=== PATIENT | male | born 1970 | race Caucasian/White ===

== ENCOUNTER 2018-01-13 03:47 | Observation (INO) | payer OTHER ==
[~2018-01-13] VITALS: Ht 172.7 cm; Wt 98.0 kg
--- NOTE | ~2018-01-13 | 2DMMODE ---
[facility] [address] [email or web address] [address] 2 D/M-MODE ECHOCARDIOGRAM Name: MARIANELA CASAS Room #: 355-P ADM IN M.R.#: [id number] Admission: 01/13/18 Attend Phys: Jes Bennett Discharge: Date of : 74 Date of Service: 01/13/18 1638 Report #: [id number] THIS REPORT FOR: //name// APPROVED REPORT Study performed: 01/13/2018 11:29:53 EXAM: Comprehensive 2D, Doppler, and color-flow Echocardiogram Patient Location: Bedside Room #: [facility] Status: on-call BSA: 2.07 HR: 73 bpm BP: 123/87 mmHg Rhythm: NSR Other Information Study Quality: Adequate Indications Murmur Dyspnea Chest Pain 2D Dimensions LVEF(%): 65.00 (>50%) IVSd: 9.22 (7-11mm) LVOT Diam: 20.00 (18-24mm) LVDd: 42.34 mm PWd: 10.28 (7-11mm) Ascending Ao: 27.14 (22-36mm) LVDs: 28.22 (25-40mm) Aortic Root: 24.92 mm LV Single Plane 4CH: 74.66 % LV Single Plane 2CH: 72.46 % Osborne's LVEF: 73.56 % Biplane EF: 74.5 % Volumes Left Atrial Volume (Systole) Single Plane 4CH: 49.00 mL Single Plane 2CH: 31.24 mL LA ESV Index: 22.00 mL/m2 Aortic Valve AoV Peak Parag.: 1.41 m/s AO Peak Gr.: 7.95 mmHg LVOT Max P.24 mmHg LVOT Max V: 1.03 m/s SUZANNE Vmax: 2.35 cm2 [facility] [place] [address] 2 D/M-MODE ECHOCARDIOGRAM Name: MARIANELA CASAS Room #: 355-P [facility] IN .R.#: [id number] Admission: 01/13/18 Attend Phys: Jes Bennett Discharge: Date of : 74 Date of Service: 01/13/18 1638 Report #: [id number] Mitral Valve E/A Ratio: 1.0 MV Decel. Time: 166.30 ms MV E Max Parag.: 0.75 m/s MV A Parag.: 0.74 m/s MV PHT: 48.23 ms IVRT: 69.20 ms TDI E/Lateral E': 12.50 E/Medial E': 15.00 Medial E' Parag.: 0.05 m/s Lateral E' Parag.: 0.06 m/s Pulmonary Valve PV Peak Parag.: 0.74 m/s PV Peak Gr.: 2.19 mmHg Pulmonary Vein P Vein S: 0.51 m/s P Vein A: 0.27 m/s P Vein D: 0.53 m/s P Vein A Dur.: 93.4 msec P Vein S/D Ratio: 0.96 Tricuspid Valve TR Peak Parag.: 2.32 m/s RAP Estimate: 7.00 mmHg TR Peak Gr.: 21.58 mmHg PA Pressure: 29.00 mmHg Left Ventricle The left ventricle is normal size. There is normal LV segmental wall motion. There is normal left ventricular wall thickness. Left ventricular systolic function is normal. The left ventricular ejection fraction is within the normal range. LVEF is 65-70%. The left ventricular diastolic function is normal. Right Ventricle The right ventricle is normal size. The right ventricular systolic function is normal. Atria The left atrium size is normal. The right atrium size is normal. Aortic Valve The aortic valve is normal in structure. No aortic regurgitation is present. There [place] [address] 2 D/M-MODE ECHOCARDIOGRAM Name: MARIANELA CASAS Room #: 355-P [facility] IN ..#: [id number] Admission: 01/13/18 Attend Phys: Jes Bennett Discharge: Date of : 74 Date of Service: 01/13/18 1638 Report #: [id number] Mitral Valve The mitral valve is normal in structure. There is no mitral valve regurgitation noted. No evidence of mitral valve stenosis. Tricuspid Valve The tricuspid valve is normal in structure. Trace tricuspid regurgitation. Pulmonary artery pressure is 29 mmHg. Pulmonic Valve The pulmonary valve is normal in structure. Trace pulmonic regurgitation. Great Vessels The aortic root is normal in size. IVC is normal in size and collapses with >50% inspiration Pericardium There is no pericardial effusion. <Conclusion> The left ventricle is normal size. LVEF is 65-70%. The aortic valve is normal in structure. The mitral valve is normal in structure. The tricuspid valve is normal in structure. Trace tricuspid regurgitation. Pulmonary artery pressure is 29 mmHg. The pulmonary valve is normal in structure. Trace pulmonic regurgitation. There is no pericardial effusion. <ELECTRONICALLY SIGNED> By: Nas Hernandez MD 01/13/18 1638 1638 1638 Nas Hernandez MD /INF
--- NOTE | ~2018-01-13 | EKG ---
[place] [address] [facility] [place] [address] ELECTROCARDIOGRAM REPORT Name: MARIANELA CASAS Room #: 355-P [facility]#: [id number] Admission: 01/13/18 Attend Phys: eJs Zimmerman Discharge: 01/13/18 Date of : 74 Report #: [id number] THIS REPORT FOR: //name// [facility] ED Test Date: 2018-01-13 Test Time: 03:59:03 Pat Name: MARIANELA CASAS Department: Room: Gender: M Flight Follower: norma : 1970 Requested By: Trevor Santos Order Number: [id number] MD: Angelo Wilson Measurements Intervals Crozier Rate: 88 P: 62 CT: 132 QRS: 51 QRSD: 106 T: 26 QT: 378 QTc: 458 Interpretive Statements Sinus rhythm Left atrial enlargement Borderline T abnormalities, anterior leads Compared to ECG 06/03/2010 11:36:11 T-wave abnormality now present Electronically Signed On 01-14-2018 16:33:18 CDT by Angelo Wilson [email or web address] <ELECTRONICALLY SIGNED> By: Angelo Wilson MD, [facility] 01/14/18 [id number] Angelo Wilson MD, [facility] /EPI
[~2018-01-13 03:47] MED LIST: ASACOL400 MG PO; AZITHROMYCIN 2250 MG PO; BENADRYL25 MG PO; CIPROFLOXACIN500 M3 PO; DARVOCET-N 1001 EAC1 PO; DARVOCET-N 1001 EACH PO; FLAGYL OR; HYDROCODONE-AP1 EACH PO; IMODIUM ADVANC1 EAC1 PO; IRON134 MG PO; LDN; MULTIVIT FLUOR PO; NOHOMEMEDICATIONS; NORCO 5-325 TA1 EACH PO; PERCOCET 5-3251 EACH PO; PREDNISONE 10 M10 M1 PO; PREDNISONE 2.52.5 M1 PO; PREDNISONE 20 M20 MG PO; PROBIOTIC FORM1 EACH PO; VICODIN 5-5001 EACH PO
[2018-01-13 04:08] VITALS: BP 136/67
[2018-01-13] MEDS ORDERED: TYLENOL EXTRA500 MG PO (04:13)
[2018-01-13 04:33] LABS: ABSOLUTE NEUTROPHILS 5.8 thou/uL (1.4-8.2); BASOPHILS 0.5 % (0.0-2.0); EOSINOPHILS 2.1 % (0.0-3.0); HEMATOCRIT 40.6 % (42.0-52.0); HEMOGLOBIN 14.2 gm/dL (14.0-18.0); MCH 28.5 pg (26.0-34.0); MCHC 34.8 g/dL (28.0-37.0); MCV 81.7 fL (80.0-100.0); PLATELET COUNT 177 thou/uL (150-400); POLYS 61.4 % (36.0-66.0); RBC 4.97 mil/uL (4.50-6.00); RDW 13.2 % (10.5-14.5); WBC 9.4 thou/uL (4.0-11.0)
[2018-01-13 04:41] LABS: ANION GAP 8 mmol/L (7-16); BUN 17 mg/dL (7-18); CHLORIDE 102 mmol/L (98-107); CO2 27 mmol/L (21-32); CREATININE 1.3 mg/dL (0.7-1.3); GLUCOSE 100 mg/dL (74-106); POTASSIUM 3.5 mmol/L (3.5-5.1); SODIUM 137 mmol/L (136-145)
[2018-01-13 04:46] LABS: APTT 28.4 Seconds (24.5-32.8); PROTIME 10.1 Seconds (9.3-11.4)
[2018-01-13 04:49] LABS: MAGNESIUM 2.1 mg/dL (1.8-2.4); SGOT 25 U/L (15-37); SGPT 54 U/L (30-65); TOTAL BILIRUBIN 0.5 mg/dL (<0.1-1.0); TOTAL PROTEIN 7.2 g/dL (6.4-8.2); TROPONIN-I < 0.04 ng/mL (<0.06)
[2018-01-13 06:01] VITALS: BP 120/71
[2018-01-13 06:30] VITALS: BP 123/87
[2018-01-13 06:32] LABS: CHOLESTEROL 155 mg/dL (<200); HDL CHOLESTEROL 48 mg/dL (>40); LDL CHOLESTEROL 88 mg/dL (<100); TC:HDL 3.2 Ratio (Not establshd); TRIGLYCERIDE 99 mg/dL (<150); VLDL 20 mg/dL (<40)
[2018-01-13 06:35] LABS: SERUM ASSESSMENT Clear
[2018-01-13 11:11] VITALS: BP 125/77
== END 2018-01-13 16:42 | disposition home or self-care (01) ==
LOC: ER 03:47 → EROBS 05:30 → 3W 06:28
PROVIDERS: Emergency Medicine; Nurse Practitioner Family
DX: R07.89 Other chest pain (principal); K58.9 Irritable bowel syndrome, unspecified; Z87.891 Personal history of nicotine dependence